=== PATIENT | male | born 1960 | race Caucasian/White ===

== ENCOUNTER 2020-07-04 20:55 | Emergency (ER) | payer OTHER, SELFPAY ==
[2020-07-04 21:26] VITALS: BP 163/109; PULSE 75; RESP 18; TEMP 36.5; O2SAT 98; BMI 34.0
[2020-07-04 23:09] VITALS: BP 171/102; PULSE 76; RESP 16; O2SAT 98
[2020-07-04 23:30] VITALS: BP 166/96; PULSE 66; RESP 16; O2SAT 97
[2020-07-04 23:37] LABS: Basophils % 0.3 %; Eosinophils % 0.1 %; Hemoglobin 15.5 g/dL (11.7-16.6); Lymphocytes # 0.8 10^3/uL (0.8-4.8); Lymphocytes % 6.5 %; Mean Corpuscular Hemoglobin 29.7 pg (28.0-34.0); Mean Platelet Volume 10.9 fL (7.4-10.4); Monocytes % 8.2 %; Neutrophils # 9.83 10^3/uL (1.8-7.7); Neutrophils % 84.6 %; Nucleated Red Blood Cells % 0 %; Platelet Count 250 10^3/cmm (130-400); Red Blood Count 5.22 10^6/uL (4.1-5.3); Red Cell Distribution Width 12.9 % (12.1-15.1); White Blood Count 11.6 10^3/uL (4.0-10.0)
--- NOTE | 2020-07-04 23:43 | CTR_ITS ---
PROCEDURE INFORMATION: Exam: CT Abdomen And Pelvis With Contrast Exam date and time: 07/04/2020 12:45 AM Age: 59 years old Clinical indication: Abdominal pain; Localized; Left lower quadrant (llq); Patient HX: C/O llq abd pain w nausea x 3 days; Additional info: Llq pain TECHNIQUE: Imaging protocol: Computed tomography of the abdomen and pelvis with contrast. Radiation optimization: All CT scans at this facility use at least one of these dose optimization techniques: automated exposure control; mA and/or kV adjustment per patient size (includes targeted exams where dose is matched to clinical indication); or iterative reconstruction. Contrast material: VISI 320; Contrast volume: 95 ml; Contrast route: INTRAVENOUS (IV); COMPARISON: No relevant prior studies available. RADIATION DOSE METRICS: Total DLP (mGy-cm): 1931.88 FINDINGS: Lungs: The lung bases are clear. No effusion Liver: There is a subcentimeter low-attenuation lesion of the liver which is too small to accurately characterize but may represent a cyst. Gallbladder and bile ducts: No wall thickening, pericholecystic fluid or stones. Pancreas: Normal. No ductal dilation. Spleen: There are multiple calcified splenic granulomata . Adrenal glands: Normal. No mass. Kidneys and ureters: 5 mm left distal ureteral calcification with mild hydronephrosis and hydroureter. Stomach and bowel: Diverticulosis without diverticulitis. Appendix: No evidence of appendicitis. Intraperitoneal space: Unremarkable. No free air. No significant fluid collection. Vasculature: Unremarkable. No abdominal aortic aneurysm. Lymph nodes: Unremarkable. No enlarged lymph nodes. Urinary bladder: Unremarkable as visualized. Reproductive: Unremarkable as visualized. Bones/joints: Unremarkable. No acute fracture. Soft tissues: Unremarkable. CT/CT abdomen pelvis w con* [id number] IMPRESSION: 1. Mildly obstructing 5 mm left distal ureteral stone. 2. Diverticulosis without diverticulitis. Radiation Dose CTDIVOL = (mGy): DLP = 1931.88 (mGy-cm)
[2020-07-04 23:52] LABS: Alanine Aminotransferase 24 U/L (0-41); Albumin Level 4.7 g/dL (3.5-5.2); Alkaline Phosphatase 91 IU/L (40-130); Aspartate Amino Transferase 20 U/L (0-40); Blood Urea Nitrogen 15 mg/dL (6-20); Calcium 11.4 mg/dL (8.5-10.5); Carbon Dioxide 22 mmol/L (22-29); Chloride 103 mmol/L (98-107); Globulin 2.5 g/dL (1.3-4.6); Glomerular Filtration Rate 56.5 mL/min (90-130); Glucose 123 mg/dL (65-115); Lipase 17 U/L (13-60); Osmolality Calculated 286 mOsm/kg (285-295); Sodium 137 mmol/L (136-145); Total Bilirubin 0.9 mg/dL (0.15-1.2); Total Protein 7.2 g/dL (6.6-8.7)
[2020-07-04 23:53] LABS: Glucose Urine UA Norm (Normal); Ketones Urine 3+ (Negative); Protein Urine Neg (Negative); Urine Color Yellow (Yellow); pH Urine 8 (5-7)
[2020-07-04 23:54] LABS: Add Urine Microscopic? YES; Bilirubin Urine Neg (Negative); Blood Urine 3+ (Negative); Leukocyte Esterase Urine Negative (Negative); Nitrate Urine Negative (Negative); Sulfosalicylic Acid Urine Negative (Negative); Urobilinogen Urine Norm (Negative)
[2020-07-04 23:55] LABS: Add Urine Culture? Yes; Amorphous Sediment Urine 3+ /hpf; Bacteria Urine TRACE /hpf; RBC Urine 25-40 /hpf (0-2); Squamous Epithelial Cell Urine 0-4 /hpf (0-5); WBC Urine 0-4 /hpf (0-5)
[2020-07-04] MEDS: ondansetron 2 mg/ML SDV 2 mL 4 MG IVP (23:55)
[2020-07-04 23:56] VITALS: RESP 16
[2020-07-04] MEDS: morphine 4 mg/mL SDV 1 mL IVP (23:56)
[2020-07-05] VITALS: BP 165/107; PULSE 64; RESP 16; O2SAT 94
[2020-07-05 00:30] VITALS: PULSE 66; RESP 16; O2SAT 97
[2020-07-05] MEDS: iodixanol 320 mg/mL 100mL Btl IV (00:46)
--- NOTE | 2020-07-05 01:17 | W.ED.ABDPA2 ---
HPI - Abdominal Pain General: Chief Complaint: Abdominal Pain Stated Complaint: sharp, pain in lower left abdomen. 3 days Time Seen by Provider: 07/04/20 22:51 History of Present Illness: MD elicited complaint: abdominal pain Onset (ago): day(s) (3) Location: LLQ Severity: moderate Radiation: L flank Migration to: no migration Exacerbating factors: movement Associated Symptoms: Reports nausea; Denies chills, diarrhea, dysuria and vomiting Review of Systems Const: Denies: chills Card: Denies: chest pain or palpitations Resp: Denies: dyspnea GI: Reports: nausea; Denies: vomiting or diarrhea : Denies: dysuria Neuro: Denies: headache(s) or confusion Physical Exam Const: GENERAL APPEARANCE: well developed ORIENTATION/CONSCIOUSNESS: Yes oriented to person, Yes oriented to place and Yes oriented to time HENMT: COMMON NORMALS: normocephalic, external ears normal and Normal external nose present HEAD & SCALP: normocephalic NOSE: Normal external nose present and No nasal discharge present EXTERNAL EAR: Yes external ears normal Eye: COMMON NORMALS: Equal, round and reactive pupils present, EOMs intact bilaterally and conjunctivae normal EYELID: eyelids normal CONJUNCTIVA: Yes conjunctivae normal PUPIL: Yes Equal, round and reactive pupils present Neck/C-Spine: GENERAL: No tracheal deviation Chest: COMMONS NORMALS: normal inspection of the chest CHEST: No tenderness Resp: COMMON NORMALS: clear to auscultation bilaterally EFFORT & INSPECTION: No tachypneic, No respiratory distress, No retractions, No uses accessory muscles and No tracheal deviation AUSCULTATION: clear to auscultation bilaterally, no rhonchi, no wheezes and lung sounds not diminished Cardio: COMMON NORMALS: regular rate and regular rhythm RATE: regular rate RHYTHM: regular rhythm HEART SOUNDS: no murmurs PERIPHERAL PULSES: radial pulses present GI: INSPECTION: No abdominal distension AUSCULTATION: No Hyperactive bowel sounds present and No Hypoactive bowel sounds present PALPATION: Yes Tenderness to palpation present (GI) Details: LLQ, No Guarding due to palpation present (GI) and No Rigid due to palpation PERCUSSION: no dullness to percussion and no tympanic to percussion : BLADDER/KIDNEY EXAM: Yes CVA tenderness on the left Neuro: SENSORIUM/ORIENTATION: Yes oriented to person, Yes oriented to place and Yes oriented to time Psych: COMMON NORMALS: mental status grossly normal Skin: COMMON NORMALS: no rashes or lesions noted GENERAL SKIN EXAM: no rashes or lesions noted Course Vital Signs: Vital signs: Vital Signs Temperature 97.7 F 07/04/20 21:26 Pulse Rate 84 07/05/20 01:55 Respiratory Rate 18 07/05/20 01:55 Blood Pressure 151/89 07/05/20 01:55 Pulse Oximetry 98 07/05/20 01:55 MDM - Abdominal Pain MDM Narrative: Medical decision making narrative: 59-year-old male with left lower quadrant pain. White blood cell count 11.6. Creatinine 1.3. CT shows a 5 mm partially obstructing stone. In the given pain medication and nausea medication, he is told to drink plenty of clear liquids. Urology referral as an outpatient if needed. Warning signs for return given. Lab Data: Labs: Lab Results 07/04/20 07/04/20 07/04/20 Range/Units 23:29 23:29 23:31 WBC 11.6 H (4.0-10.0) 10^3/ uL RBC 5.22 (4.1-5.3) 10^6/u L Hgb 15.5 (11.7-16.6) g/dL Hct 47.0 (42.0-52.0) % MCV 90.0 (80-94) fL MCH 29.7 (28.0-34.0) pg MCHC 33.0 (30.0-36.0) g/dL RDW 12.9 (12.1-15.1) % Plt Count 250 (130-400) 10^3/c mm MPV 10.9 H (7.4-10.4) fL Neut % (Auto) 84.6 % Lymph % (Auto) 6.5 % [place] % (Auto) 8.2 % Eos % (Auto) 0.1 % Baso % (Auto) 0.3 % Neut # (Auto) 9.83 H (1.8-7.7) 10^3/u L Lymph # (Auto) 0.8 (0.8-4.8) 10^3/u L [place] # (Auto) 1.0 H (0.2-0.9) 10^3/u L Eos # (Auto) 0.0 (0.0-0.8) 10^3/u L Baso # (Auto) 0.0 (0.0-0.1) 10^3/u L Nucleated RBC % (a uto) 0 % Nucleated RBCs # 0.0 /100WBC Sodium 137 (136-145) mmol/L Potassium 4.0 (3.5-5.1) mmol/L Chloride 103 (98-107) mmol/L Carbon Dioxide 22 (22-29) mmol/L Anion Gap 16.0 (5-19) BUN 15 (6-20) mg/dL Creatinine 1.3 H (0.7-1.2) mg/dL GFR Calculation 56.5 L (90-130) mL/min Glucose 123 H (65-115) mg/dL Calculated Osmolal ity 286 (285-295) mOsm/k g Calcium 11.4 H (8.5-10.5) mg/dL Total Bilirubin 0.9 (0.15-1.2) mg/dL AST 20 (0-40) U/L ALT 24 (0-41) U/L Alkaline Phosphata se 91 (40-130) IU/L Total Protein 7.2 (6.6-8.7) g/dL Albumin 4.7 (3.5-5.2) g/dL Globulin 2.5 (1.3-4.6) g/dL Lipase 17 (13-60) U/L Urine Color Yellow (Yellow) Urine Appearance Sl cloudy A (CLEAR) Urine pH 8 H (5-7) Ur Specific Gravit y 1.010 (1.005-1.030) Urine Protein Neg (Negative) Urine Glucose (UA) Norm (Normal) Urine Ketones 3+ H (Negative) Urine Blood 3+ H (Negative) Urine Nitrate Negative (Negative) Urine Bilirubin Neg (Negative) Prot Sulfosalicyli c Acd Negative (Negative) Urine Urobilinogen Norm (Negative) mg/dL Ur Leukocyte Dominique ase Negative (Negative) Urine RBC 25-40 H (0-2) /hpf Urine WBC 0-4 H (0-5) /hpf Ur Squamous Epith Cells 0-4 H (0-5) /hpf Amorphous Sediment 3+ /hpf Urine Bacteria Trace (NONE) /hpf Discharge Plan Discharge Patient Disposition: Home Clinical Impression: Ureterolithiasis Condition: Stable Prescriptions: New Zofran 4 mg tablet 4 mg PO Q6H PRN (Reason: nausea and vomiting) Qty: 10 RF: 0 ketorolac 10 mg tablet 10 mg PO TID PRN (Reason: pain) Qty: 10 RF: 0 Percocet 7.5-325 mg tablet 1 tab PO Q6H PRN (Reason: pain) Qty: 10 RF: 0 Discharge Orders: Discharge ED (Routine); Ordered 07/05/20 Ordered By: Clement Philippe Referrals: Ramakrishna Jordan MD [Physician] - 1-3 days Patient Instructions: Kidney Stones (ED), Opioid Safety Activity Restrictions/Additional Instructions: Return for fever greater than 100, worsening pain despite treatment, vomiting liquids or medications, other concerning symptoms. Medications as directed. Call urology for follow-up later this week. Coding Level of Care Code ED [employer] Professor for Ck Espinoza
[2020-07-05] MEDS: ketorolac 30 mg/mL INJ IVP (01:50)
[2020-07-05 01:55] VITALS: BP 151/89; PULSE 84; RESP 18; O2SAT 98
== END 2020-07-05 01:57 | disposition home or self-care (01) ==
PROVIDERS: Nurse Practitioner Family; Emergency Provider Emergency Medicine
DX: N20.1 Calculus of ureter (principal)
CPT/HCPCS: 74177; 80053; 81001; 83690; 85025; J1885; J2270; J2405; Q9967

== ENCOUNTER 2020-07-09 08:53 | Outpatient (CLI) | payer OTHER, SELFPAY ==
--- NOTE | 2020-07-09 09:03 | XR_ITS ---
WS: [id number] XR KUB [id number] REASON FOR EXAM: URETEROLITHIASIS FINDINGS: No intrarenal calculi are identified. The distal left ureteral calculus demonstrated on the CT scan of 07/05/2020 may be present at the same level as noted on the CT scan. However the finding is equivocal. 2 small calcifications in the lower left pelvis appear to represent phleboliths. No other significant abnormality on the remainder of the examination. XR/XR KUB [id number] IMPRESSION: No intrarenal calculi identifiable. Equivocal finding of the plain film correla te of the distal left ureteral calculus seen on the previous CT.
== END 2020-07-09 08:54 | disposition home or self-care (01) ==
PROVIDERS: Visit Provider Nurse Practitioner Family
DX: N20.1 Calculus of ureter (principal)
CPT/HCPCS: 74018; 81003

== ENCOUNTER 2020-07-30 08:51 | Outpatient (CLI) | payer OTHER, SELFPAY ==
--- NOTE | 2020-07-30 09:00 | XR_ITS ---
WS: [id number] KUB, AP view, 07/30/2020 Clinical Data: N20.0 - Calculus of kidney Comparison: KUB, 07/09/2020. Findings: No abnormal intraabdominal masses or calcifications are seen. There is no dilatated small bowel or ev idence of obstruction. No abnormal calcifications are seen in the chest or pelvis. XR/XR KUB [id number] Impression: Negative KUB.
== END 2020-07-30 08:52 | disposition home or self-care (01) ==
LOC: RAD 08:56
PROVIDERS: Visit Provider Urology
DX: N20.0 Calculus of kidney (principal)
CPT/HCPCS: 74018; 81003

== ENCOUNTER 2021-07-28 08:38 | Outpatient (CLI) | payer OTHER, SELFPAY ==
--- NOTE | 2021-07-28 08:45 | XR_ITS ---
WS: [id number] XR KUB [id number] REASON FOR EXAM: URETEROLITHIASIS FINDINGS: No intrarenal calculi are identified. No ureteral calculi are identified. The distal left ureteral calculus seen on the CT scan of 07/30/2020 and the KUB of 07/30/2020 is no longer identifiable. Compared to the previous abdomen film of 07/30/2020 there is now a complex calcification seen just abov e and to the left of the pubic symphysis on the AP view of the pelvis. Although this could represent a bladder calculus more likely this calcification is outside the urinary tract. XR/XR KUB [id number] IMPRESSION: No definite urinary tract calculi. New calcification in the pelvis as above.
== END 2021-07-28 08:39 | disposition home or self-care (01) ==
LOC: RAD 08:42
PROVIDERS: Visit Provider Nurse Practitioner Family
DX: N20.1 Calculus of ureter (principal)
CPT/HCPCS: 74018; 81003

== ENCOUNTER → 2022-12-20 14:41 | Outpatient (BNVA) | payer OTHER, SELFPAY | PROVIDERS: Visit Provider Surgery | DX: R22.2 Localized swelling, mass and lump, trunk (principal) | CPT/HCPCS: 88304 ==